=== PATIENT | female | born 1965 | race Native Hawaiian/Other Pacific Islander ===

== ENCOUNTER 2017-12-31 07:55 | Emergency (ER) | payer BC, SELFPAY ==
[2017-12-31 08:01] VITALS: BP 108/70; PULSE 79; RESP 16; TEMP 36.6; O2SAT 100; BMI 22.6
--- NOTE | 2017-12-31 08:22 | ED_ITS ---
HPI - URI/Sore Throat General Chief Complaint: Upper Respiratory Symptoms Stated Complaint: 'COLD OR SOMETHING' Time Seen by Provider: 12/31/17 07:58 Source: patient Mode of arrival: ambulatory Limitations: no limitations History of Present Illness HPI Narrative: Otherwise healthy 52-year-old female here for evaluation of sinus congestion and a dry cough and ear pain without a sore throat for the past 24-48 hours. Patient states that she had similar symptoms 2 weeks ago that improved on their own. No wheezing. Tried some Tylenol last evening. Related Data Previous Rx's Medication Instructions Recorded codeine-guaifenesin [Guaifenesin 10 ml PO Q4-6H PRN #118 ml 12/31/17 AC] Allergies Allergy/AdvReac Type Severity Reaction Status Date / Time Penicillins AdvReac Verified 12/31/17 08:01 Review of Systems Constitutional Denies body ache(s), Denies fever(s), Denies malaise and Denies weakness ENT Ears, Nose, Mouth, and Throat: Denies vertigo, Denies dizziness, Reports dry mouth, Reports sinus pain, Reports sinus pressure, Denies sore throat, Denies throat swelling and Denies tongue swelling Cardiovascular Denies chest pain and Denies dyspnea Respiratory Reports cough, Denies dyspnea and Denies wheezing Gastrointestinal Gastrointestinal: Denies nausea and Denies vomiting Integumentary/Breasts Denies lesions and Denies rash Neurologic Denies vertigo, Denies dizziness and Denies weakness Hematologic/Lymphatic Denies easy bleeding and Denies easy bruising Allergic/Immunologic Denies throat swelling, Denies tongue swelling and Denies wheezing PFSH Social History Smoking Status: Never smoker Exam Initial Vital Signs Initial Vital Signs: Vital Signs Temperature 97.9 F 12/31/17 08:01 Pulse Rate 79 12/31/17 08:01 Respiratory Rate 16 12/31/17 08:01 Blood Pressure 108/70 12/31/17 08:01 Pulse Oximetry 100 12/31/17 08:01 Const General: cooperative and well developed Nutritional Appearance: well nourished Orientation: alert, awake, oriented x3 and not confused HENMT Head: normal to inspection, normocephalic and atraumatic Ears: other (Left TM obscured by cerumen, right TM bulging however no erythema) Nose: external nose normal Face and sinus: normal facial exam Mouth: oral mucosae normal and other (Posterior oropharynx red no signs of exudate) Teeth and gingiva: dentition normal Throat: uvula midline Neck Lymphatic: No lymphadenopathy Resp Effort & Inspection: normal respiratory effort Auscultation: clear to auscultation bilaterally Cardio Rate: regular rate Rhythm: regular rhythm Neuro General: alert, awake and oriented x3 Cognition: normal cognition Speech: speech normal Extrem General: normal to inspection and capillary refill normal Course Vital Signs - 8 hr 12/31/ 08:01 Temperature 97.9 F Pulse Rate 79 Respiratory Rate 16 Blood Pressure 108/70 Pulse Oximetry 100 MDM - URI/Sore Throat MDM Narrative Medical decision making narrative: Patient is not hypoxic, afebrile here, has history of physical exam consistent with upper respiratory infection. Will hold on chest x-ray for now. Will provide symptoms review. We did discuss the use of antihistamine such as Claritin and Judy and also nasal steroid such as Flonase or Nasonex. Patient will by these over the counter. Will also provide Robitussin with codeine for her cough symptoms. She was informed that this may not take her cough completely away but should improve her symptoms. She was given return precautions. She expressed understanding and agreement with plan Discharge Plan Departure Patient Disposition: Home, Self-Care Clinical Impression: Upper respiratory infection Instructions: Cough (Alternative Therapy), Cough, DI for Viral Upper Respiratory Infection -- Adult Activity Restrictions/Additional Instructions: Recommend that you purchase an [id number] antihistamine such as Claritin/ Judy/Zyrtec and also a nasal steroid such as Nasonex/Flonase. You can by the generic version of these medicines. They can be purchased at any drug store. I would take these medications as directed for the next several days and then as needed afterwards. Call your primary care doctor for a follow-up. Return to the emergency department for any new or worsening symptoms Prescriptions: New codeine-guaifenesin [Guaifenesin AC] 10-100 mg/5 mL liquid 10 ml PO Q4-6H PRN (Reason: cough) Qty: 118 RF: 0
[2017-12-31 08:28] VITALS: BP 108/70; PULSE 79; RESP 18; O2SAT 100
== END 2017-12-31 08:28 | disposition home or self-care (01) ==
PROVIDERS: Emergency Provider Emergency Medicine
DX: J06.9 Acute upper respiratory infection, unspecified (principal)
CPT/HCPCS: 99282

== ENCOUNTER → 2018-05-26 19:02 | Outpatient (CLI) | payer BC, SELFPAY ==
--- NOTE | 2018-05-26 | DI.MRI.S_ITS ---
PROCEDURE: MR SHOULDER LT WO CON INDICATIONS: LEFT SHOULDER PAIN TECHNIQUE: Noncontrast oblique coronal T2 fast spin echo with fat saturation, oblique sagittal T1 spin echo and T2 fast spin echo with fat saturation, axial T1 spin echo and T2 fast spin echo with fat saturation through the shoulder. COMPARISON: None. FINDINGS: Image quality: Excellent. Rotator cuff: Full-thickness tear of the supraspinatus tendon measuring approximately 7-8 mm in AP dimension as seen on sagittal image 17 series 10. There is infraspinatus tendinopathy, with interstitial tearing and partial thickness articular sided tear. The teres minor appears intact. Marked subscapularis tendinopathy, interstitial tearing and partial thickness articular sided tear approximately 50% of tendon thickness. There is fatty infiltration of the supraspinatus and infraspinatus muscles with borderline atrophy of the supraspinatus. Bones and bursae: No bone marrow contusions or fractures. Moderate acromioclavicular joint degeneration. Incidentally noted lateral downsloping of the acromion. The acromion demonstrates conventional anatomy, without an os acromiale. Capsule and soft tissues: Moderate glenohumeral joint effusion. The labrum and glenohumeral ligaments appear intact. Circumferential glenoid spurring. Incidental sub-labral foramen The long head of the biceps tendon demonstrates normal location and morphology. The rotator interval appears normal, without fibrosis. The coracohumeral ligament is normal in thickness. IMPRESSION: Full-thickness supraspinatus tear at the junction of the critical zone and footprint. Infraspinatus tendinopathy with partial-thickness articular sided tear. Subscapularis tendinopathy and partial-thickness articular sided tear. Portal and atrophy of the supraspinatus, and diffuse fatty filtration of the supraspinatus and infraspinatus. Lateral downsloping of the acromion. Moderate glenohumeral joint effusion. Dictated by: Solitario Erickson M.D. on 05/27/2018 at 9:52 Approved by: Solitario Erickson M.D. on 05/27/2018 at 10:02
== END ==
PROVIDERS: Visit Provider Specialist
DX: M25.512 Pain in left shoulder (principal); M75.122 Complete rotator cuff tear or rupture of left shoulder, not specified as traumatic; M25.412 Effusion, left shoulder
CPT/HCPCS: 73221

== ENCOUNTER 2019-03-15 17:02 | Emergency (ER) | payer BC, SELFPAY ==
[2019-03-15 17:17] VITALS: BP 119/78; PULSE 82; RESP 20; TEMP 36.4; O2SAT 99
--- NOTE | 2019-03-15 17:48 | DI.RAD.S_ITS ---
PROCEDURE: XR CHEST 1V INDICATIONS: chest pain TECHNIQUE: One view of the chest was acquired. COMPARISON: None. FINDINGS: Surgical changes and devices: None. Lungs and pleura: Lungs are clear. No pleural effusions or pneumothorax. Mediastinum: Mediastinal contours appear normal. Heart size is normal. Bones and chest wall: No suspicious bony lesions. Mild thoracic scoliosis. Overlying soft tissues appear unremarkable. IMPRESSION: No acute cardiopulmonary disease. Dictated by: Neena Naik M.D. on 03/15/2019 at 18:26 Approved by: Neena Naik M.D. on 03/15/2019 at 18:27
--- NOTE | 2019-03-15 17:48 | CM.MNRNOTE ---
Pt refuses IV start at this time.
[2019-03-15 18:15] LABS: Add Manual Diff / Slide Review NO; Basophils Absolute Auto 100 /uL (0-100); Basophils Percent Auto 2.4 % (0-2); Eosinophils Absolute Auto 0 /uL (0-450); Eosinophils Percent Auto 0.6 % (2-4); Hematocrit 35.9 % (36-46); Lymphocytes Absolute Auto 1400 /uL (1100-4500); Lymphocytes Percent Auto 36.2 % (25-40); Mean Corpuscular HGB Conc 33.4 % (30-36); Mean Corpuscular Hemoglobin 28.2 PG (26-34); Mean Corpuscular Volume 84.5 fL (80-100); Monocytes Absolute Auto 200 /uL (0-900); Monocytes Percent Auto 4.3 % (3-14); Neutrophils Absolute Auto 2200 /uL (1500-7000); Neutrophils Percent Auto 56.5 % (50-75); Platelet Count 215 X10^3/uL (150-400); Red Blood Cell Count 4.25 X10^6/uL (4.0-5.2); Red Cell Distribution Width 13.7 % (11.6-14.8); White Blood Cell Count 3.9 X10^3/uL (4.5-11.0)
[2019-03-15 18:20] LABS: Prothrombin Time 11.8 SECONDS (10.1-12.7)
[2019-03-15 18:23] LABS: Alanine Aminotransferase 21 IU/L (9-52); Albumin 4.2 g/dL (3.5-5.0); Albumin Globulin Ratio 1.3 (1.0-2.8); Alkaline Phosphatase 66 U/L (38-126); Aspartate Aminotransferase 38 IU/L (14-36); BUN Creatinine Ratio 31.4 (6-22); Bilirubin Total 0.5 mg/dL (0.2-1.3); Blood Urea Nitrogen 22 mg/dL (7-17); Calcium 9.3 mg/dL (8.4-10.2); Carbon Dioxide 29 mmol/L (22-32); Chloride 103 mmol/L (98-107); Creatine Kinase 223 U/L (30-135); Estimated Glomerular Filt Rate > 60.0 mL/min (>60); Globulin 3.2 g/dL (1.7-4.1); Glucose 88 mg/dL (70-100); HEMOLYSIS < 15 (0-50); Lipase 74 U/L (23-300); PTT Partial Thromboplastin Tim 39 SECONDS (26.4-36.2); Potassium 3.5 mmol/L (3.4-5.1); Sodium 139 mmol/L (137-145); Total Protein 7.4 g/dL (6.3-8.2)
[2019-03-15 18:34] LABS: Troponin I < 0.012 ng/mL (0.01-0.034)
--- NOTE | 2019-03-15 18:43 | DI.CT.S_ITS ---
PROCEDURE: CT HEAD/BRAIN WO CON INDICATIONS: dizziness, ELAINE TECHNIQUE: Noncontrast 4.5 mm thick angled axial sections acquired from the foramen magnum to the vertex, with coronal and sagittal reformats. For radiation dose reduction, the following was used: automated exposure control, adjustment of mA and/or kV according to patient size. COMPARISON: None. FINDINGS: Image quality: Excellent. CSF spaces: Basal cisterns are patent. No extra-axial fluid collections. Ventricles are normal in size and shape. Brain: No midline shift. No intracranial masses or hemorrhage. Terrazas-white matter interface is normal. Skull and face: Calvarium and visualized facial bones are intact, without suspicious lesions. Sinuses: Visualized sinuses and mastoids are clear. IMPRESSION: No CT evidence of acute intracranial process. Dictated by: Neena Naik M.D. on 03/15/2019 at 20:14 Approved by: Neena Naik M.D. on 03/15/2019 at 20:16
[2019-03-15 18:45] VITALS: BP 107/82; PULSE 66; RESP 18; O2SAT 100
[2019-03-15 19:00] VITALS: BP 105/68; PULSE 66; RESP 11; O2SAT 99
--- NOTE | 2019-03-15 19:01 | ED_ITS ---
HPI - Dizziness General Chief Complaint: Dizziness Stated Complaint: Vomitting and Dizzy for 2 days Time Seen by Provider: 03/15/19 18:03 Source: patient and family Mode of arrival: ambulatory Limitations: no limitations History of Present Illness HPI Narrative: 53-year-old female nonsmoker with noncontributory medical history presents with her in the chief complaint dizziness for the past few days as well as nausea and vomiting. She states the dizziness started prior to the nausea and vomiting. She states her symptoms are worse with sitting up, standing or turning her head and improve 1 remaining still. She has a subtle, pressure-like headache. She denies any recent head injury, fever, chills nor history of the same. She denies any focal neurologic findings such as numbness, tingling or weakness. She denies any upper respiratory complaints such as runny nose, nasal congestion, sneezing, cough, sore throat or ear pain. She denies any change in medications or diet. MD complaint: dizziness Onset (ago): day(s) Timing: sudden onset Description: sense of movement and room spinning History of similar episodes: No History of trauma: No Severity: moderate Relieving factors: remaining still Exacerbating factors: movement and position Associated symptoms: nausea and vomiting Related Data Home Medications Medication Instructions Recorded Confirmed Chantal-C with Bioflavonoids 1 tab PO DAILY 03/15/19 03/15/19 Fish Oil 1 cap PO DAILY 03/15/19 03/15/19 Vitamin D3 1 cap PO DAILY 03/15/19 03/15/19 aspirin 81 mg PO DAILY 03/15/19 03/15/19 cranberry 1 cap PO DAILY 03/15/19 03/15/19 vitamin E 1 cap PO DAILY 03/15/19 03/15/19 Previous Rx's Medication Instructions Recorded meclizine 25 mg PO BID-TID PRN #14 tab 03/15/19 ondansetron 4 mg PO TID-QID PRN #10 tab 03/15/19 Allergies Allergy/AdvReac Type Severity Reaction Status Date / Time Penicillins AdvReac Verified 12/31/17 08:01 Review of Systems Constitutional Constitutional: Denies chills, Denies fatigue, Denies fever(s), Denies frequent falls, Denies lethargy and Denies weakness Eyes Eyes: Denies change in vision, Denies eye discharge, Denies irritation and Denies loss of vision ENT Ears, Nose, Mouth, and Throat: Denies change in voice, Reports dizziness, Denies neck pain, Denies sore throat and Denies throat swelling Cardiovascular Cardiovascular: Denies chest pain, Denies irregular heart rhythm, Denies lightheadedness, Denies palpitations, Denies dyspnea, Denies dyspnea on exertion and Denies orthopnea Respiratory Respiratory: Denies cough, Denies dyspnea, Denies dyspnea on exertion and Denies wheezing Gastrointestinal Gastrointestinal: Denies abdominal pain, Denies change in bowel habits, Denies diarrhea, Reports nausea and Reports vomiting Genitourinary Genitourinary: Denies hematuria, Denies flank pain, Denies urinary incontinence and Denies urinary urgency Musculoskeletal Musculoskeletal: Denies back pain, Denies muscle weakness, Denies neck pain, Denies numbness and Denies tingling Integumentary/Breasts Skin/Breast: Denies pruritus, Denies erythema, Denies rash and Denies wounds Neurologic Neurologic: Denies behavioral changes, Denies confusion, Reports dizziness, Denies frequent falls, Denies loss of vision, Denies numbness, Denies tingling and Denies weakness Psychiatric Psychiatric: Denies anxiety, Denies behavioral changes, Denies confusion, Denies depression, Denies homicidal ideation and Denies suicidal ideation Endocrine Endocrine: Denies fatigue, Denies flushing and Denies palpitations Hematologic/Lymphatic Hematologic/Lymphatic: Denies easy bruising Allergic/Immunologic Allergic/Immunologic: Denies urticaria, Denies throat swelling and Denies wheezing [facility] Medical History Milia (Chronic ~1999) Plantar warts (Chronic ~1999) Shoulder pain (Chronic ~2017) Torn rotator cuff (Chronic ~04/2018) Vision disorder (Chronic) Surgical History Anesthesia (Resolved) History of abdominoplasty (Resolved ~2014) History of breast augmentation (Resolved ~2014) History of section (Resolved ~1998) Family History (Updated 03/06/19 @ 20:59 by Kathy Pardo) Father Alzheimer's disease Mother Cancer Social History Smoking Status: Never smoker Family History Father Alzheimer's disease Mother Cancer Social History Smoking Status: Never smoker Exam Narrative Exam Narrative: GENERAL: [53] year old patient appears stated age. Well- nourished, well-developed patient, in mild distress. HEAD: Atraumatic. Normocephalic. EYES: Pupils equal round and reactive. Extraocular motions intact. No scleral icterus. No injection or drainage. ENT: Nose without bleeding, purulent drainage. Throat without erythema, tonsillar hypertrophy or exudate. Airway patent. NECK: Trachea midline. Non tender CARDIOVASCULAR: Regular rate and rhythm without murmurs, gallops, or rubs. RESPIRATORY: Clear to auscultation. Breath sounds equal bilaterally. No wheezes, rales, or rhonchi. GASTROINTESTINAL: Abdomen soft, non-tender, nondistended. EXTREMITIES: No edema or joint tenderness. BACK: Nontender without deformity or crepitance. No flank tenderness. NEURO: AOx3. SKIN: No rash or erythema of visible areas NIH Stroke Scale 1a. LOC: Patient is alert and keenly responsive (0) 1b. LOC Questions: Patient answers both LOC questions accurately (0) 1c. LOC Commands: Patient performs both tasks correctly (0) 2. Best Gaze: Normal (0) 3. Visual: No visual loss (0) 4. Facial palsy: Normal symmetrical movements (0) 5. Motor arm: No drift (0) 6. Motor leg: No drift (0) 7. Limb ataxia: Absent (0) 8. Sensory: Normal (0) 9. Best language: No aphasia; normal (0) 10. Dysarthria: Normal (0) 11. Extinction and inattention: No abnormality (0) NIHSS: 0 Initial Vital Signs Initial Vital Signs: Vital Signs Temperature 97.5 F L 03/15/19 17:17 Pulse Rate 82 03/15/19 17:17 Respiratory Rate 20 03/15/19 17:17 Blood Pressure 119/78 03/15/19 17:17 Pulse Oximetry 99 03/15/19 17:17 Course Course Course Narrative: bedside rapid CO monitor notes a level of 4 Orders Ordered: ED Orders 03/15/19 18:43 CT head/brain wo con Stat Discontinued Medications Meclizine HCl (Antivert) 25 mg PO NOW ONE Stop: 03/15/19 18:44 Last Admin: 03/15/19 19:02 Dose: 25 mg Documented by: SHOAIB Vital Signs Vital signs: Vital Signs - 8 hr 03/15/19 20:22 03/15/19 21:20 Pulse Rate 69 Pulse Rate [Orthostatic Lying] 62 Pulse Rate [Orthostatic Sitting] 67 Pulse Rate [Orthostatic Standing] 79 Respiratory Rate 17 Blood Pressure 123/85 Blood Pressure [Orthostatic Lying] 113/65 Blood Pressure [Orthostatic Sitting] 135/71 Blood Pressure [Orthostatic Standing] 121/78 Pulse Oximetry 100 MDM - Dizziness Lab Data Result diagrams: 03/15/19 17:56 03/15/19 17:56 Labs: Lab Results 03/15/19 03/15/19 03/15/19 Range/Units 17:56 17:56 17:56 WBC 3.9 L (4.5-11.0) X10^3/uL RBC 4.25 (4.0-5.2) X10^6/uL Hgb 12.0 (12.0-16.0) g/dL Hct 35.9 L (36-46) % MCV 84.5 (80-100) fL MCH 28.2 (26-34) PG MCHC 33.4 (30-36) % RDW 13.7 (11.6-14.8) % Plt Count 215 (150-400) X10^3/uL Neut % (Auto) 56.5 (50-75) % Lymph % (Auto) 36.2 (25-40) % Norton % (Auto) 4.3 (3-14) % Eos % (Auto) 0.6 L (2-4) % Baso % (Auto) 2.4 H (0-2) % Neut # (Auto) 2200 (2881-9448) /uL Lymph # (Auto) 1400 (5700-6233) /uL Norton # (Auto) 200 (0-900) /uL Eos # (Auto) 0 (0-450) /uL Baso # (Auto) 100 (0-100) /uL PT 11.8 (10.1-12.7) SECONDS INR 1.0 (0.9-1.3) APTT 39 H (26.4-36.2) SECONDS Sodium 139 (137-145) mmol/L Potassium 3.5 (3.4-5.1) mmol/L Chloride 103 (98-107) mmol/L Carbon Dioxide 29 (22-32) mmol/L BUN 22 H (7-17) mg/dL Creatinine 0.70 (0.52-1.04) mg/dL Estimated GFR > 60.0 (>60) mL/min BUN/Creatinine Ratio 31.4 H (6-22) Glucose 88 (70-100) mg/dL Calcium 9.3 (8.4-10.2) mg/dL Total Bilirubin 0.5 (0.2-1.3) mg/dL AST 38 H (14-36) IU/L ALT 21 (9-52) IU/L Alkaline Phosphatase 66 (38-126) U/L Total Creatine Kinase 223 H (30-135) U/L CK-MB (CK-2) 2.30 (<2.37) ng/mL CK-MB (CK-2) Rel Index 1.0 L (1.5-5.0) % Troponin I < 0.012 (0.01-0.034) ng/mL Total Protein 7.4 (6.3-8.2) g/dL Albumin 4.2 (3.5-5.0) g/dL Globulin 3.2 (1.7-4.1) g/dL Albumin/Globulin Ratio 1.3 (1.0-2.8) Lipase 74 (23-300) U/L Urine Dip Bedside Urine Glucose Negative Bedside Urine Bilirubin - Negative Bedside Urine Ketone - Negative Urine Specific [place] 1.010 Bedside Urine Occult Blood - Negative Bedside Urine pH 6.5 Bedside Urine Protein - Negative Bedside Urine Urobilinogen - Negative Bedside Urine Nitrite - Negative Bedside Urine Leukocytes - Negative Esterase MDM Narrative Medical decision making narrative: Multiple etiologies for patient's symptoms considered including: [Stroke versus dehydration versus peripheral vertigo versus electrolyte abnormality versus carbon monoxide exposure versus other] Patient's symptoms improved or duration of stay with above-stated therapies. Findings and discharge diagnosis discussed with patient/family followed by verbalization of understanding Return precautions discussed with patient/family whom verbalize understanding. Discharge Plan Departure Patient Disposition: Home Clinical Impression: Dizziness Discharge Date/Time: 03/15/19 21:20 Instructions: DI for Dizziness-Nonvertigo Activity Restrictions/Additional Instructions: *You have been diagnosed with [ dizziness. Stroke, heart attack, carbon monoxide considered ] *What to do: *Take medications as directed *Follow up with your primary care provider in 2-3 days, call for an ap pointment. Let them know you were seen in the Emergency Department and that we ask that you be seen in follow up *Return to ER if you should have any new, worsening or concerning symptoms Prescriptions: New meclizine 25 mg tablet 25 mg PO BID-TID PRN (Reason: dizziness) Qty: 14 RF: 0 ondansetron 4 mg tablet,disintegrating 4 mg PO TID-QID PRN (Reason: nausea and vomiting) Qty: 10 RF: 0 No Action aspirin 81 mg Tablet,Delayed Release (Dr/Ec) 81 mg PO DAILY RF: 0 Chantal-C with Bioflavonoids 1 tab PO DAILY RF: 0 Fish Oil 1 cap PO DAILY RF: 0 Vitamin D3 1 cap PO DAILY RF: 0 cranberry 1 cap PO DAILY RF: 0 vitamin E 1 cap PO DAILY RF: 0 Referrals: Angela Stack DO [Physician] -
[2019-03-15] MEDS: MECLIZINE HCL 12.5 MG TABLET 25 MG PO (19:02)
[2019-03-15 20:22] VITALS: BP 113/65; BP 121/78; BP 135/71; PULSE 62; PULSE 67; PULSE 79
[2019-03-15 21:20] VITALS: BP 123/85; PULSE 69; RESP 17; O2SAT 100
== END 2019-03-15 21:20 | disposition home or self-care (01) ==
PROVIDERS: Emergency Medicine; Emergency Provider Emergency Medicine
DX: R42 Dizziness and giddiness (principal); R07.9 Chest pain, unspecified
CPT/HCPCS: 36415; 70450; 71045; 80053; 81003; 82550; 82553; 83690; 84484; 85025; 85610; 85730; 93005; 99283; 99285

== ENCOUNTER → 2019-07-10 12:51 | Outpatient (CLI) | payer BC, SELFPAY ==
[2019-07-10 14:12] LABS: Cholesterol 267 mg/dL (140-199); Triglycerides 92 mg/dL (35-150)
[2019-07-10 14:27] LABS: HDL Cholesterol 122 mg/dL (40-60); LDL Cholesterol Calculated 127 mg/dL (<100)
[2019-07-10 14:39] LABS: Thyroid Stimulating Hormone 1.72 uIU/mL (0.47-4.68)
== END ==
PROVIDERS: PCP Family Medicine; Visit Provider Family Medicine
DX: R42 Dizziness and giddiness (principal); Z13.29 Encounter for screening for other suspected endocrine disorder; Z13.220 Encounter for screening for lipoid disorders
CPT/HCPCS: 36415; 80061; 84443

== ENCOUNTER → 2020-01-17 16:27 | Outpatient (CLI) | payer BC, SELFPAY ==
[2020-01-17 17:21] LABS: Add Manual Diff / Slide Review NO; Basophils Absolute Auto 100 /uL (0-100); Basophils Percent Auto 3.6 % (0-2); Eosinophils Absolute Auto 100 /uL (0-450); Eosinophils Percent Auto 2.9 % (2-4); Hematocrit 37.8 % (36-46); Hemoglobin 12.6 g/dL (12.0-16.0); Lymphocytes Absolute Auto 1500 /uL (1100-4500); Lymphocytes Percent Auto 36.7 % (25-40); Mean Corpuscular HGB Conc 33.3 % (30-36); Mean Corpuscular Hemoglobin 28.3 PG (26-34); Mean Corpuscular Volume 84.9 fL (80-100); Monocytes Absolute Auto 200 /uL (0-900); Monocytes Percent Auto 4.5 % (3-14); Neutrophils Absolute Auto 2100 /uL (1500-7000); Neutrophils Percent Auto 52.3 % (50-75); Platelet Count 246 X10^3/uL (150-400); Red Blood Cell Count 4.45 X10^6/uL (4.0-5.2); Red Cell Distribution Width 13.5 % (11.6-14.8); White Blood Cell Count 4.1 X10^3/uL (4.5-11.0)
[2020-01-17 18:23] LABS: Prothrombin Time 11.2 SECONDS (10.1-12.7)
[2020-01-17 18:28] LABS: Alanine Aminotransferase 23 IU/L (<35); Albumin 4.2 g/dL (3.5-5.0); Albumin Globulin Ratio 1.5 (1.0-2.8); Alkaline Phosphatase 74 U/L (38-126); Aspartate Aminotransferase 38 IU/L (14-36); BUN Creatinine Ratio 27.8 (6-22); Bilirubin Total 0.3 mg/dL (0.2-1.3); Blood Urea Nitrogen 20 mg/dL (7-17); Calcium 9.6 mg/dL (8.4-10.2); Carbon Dioxide 28 mmol/L (22-32); Chloride 103 mmol/L (98-107); Estimated Glomerular Filt Rate > 60.0 mL/min (>60); Globulin 2.8 g/dL (1.7-4.1); Glucose 91 mg/dL (70-100); HEMOLYSIS < 15 (0-50); Potassium 4.4 mmol/L (3.4-5.1); Sodium 135 mmol/L (137-145)
== END ==
PROVIDERS: PCP Nurse Practitioner; Referring Provider Nurse Practitioner; Visit Provider Nurse Practitioner
DX: R23.8 Other skin changes (principal)
CPT/HCPCS: 36415; 80053; 85025; 85610

== ENCOUNTER → 2020-07-22 09:03 | Outpatient (CLI) | payer BC, SELFPAY ==
[2020-07-22 10:09] LABS: Alanine Aminotransferase 20 IU/L (<35); Albumin 3.9 g/dL (3.5-5.0); Albumin Globulin Ratio 1.3 (1.0-2.8); Alkaline Phosphatase 62 U/L (38-126); Aspartate Aminotransferase 31 IU/L (14-36); BUN Creatinine Ratio 30.3 (6-22); Bilirubin Total 0.4 mg/dL (0.2-1.3); Blood Urea Nitrogen 23 mg/dL (7-17); Calcium 9.1 mg/dL (8.4-10.2); Carbon Dioxide 33 mmol/L (22-32); Chloride 104 mmol/L (98-107); Cholesterol 224 mg/dL (140-199); Estimated Glomerular Filt Rate > 60.0 mL/min (>60); Globulin 3.1 g/dL (1.7-4.1); Glucose 101 mg/dL (70-100); HEMOLYSIS < 15 (0-50); Magnesium 2.1 mg/dL (1.6-2.3); Potassium 4.3 mmol/L (3.4-5.1); Sodium 136 mmol/L (137-145); Triglycerides 75 mg/dL (35-150)
[2020-07-22 10:18] LABS: HDL Cholesterol 115 mg/dL (40-60); LDL Cholesterol Calculated 94 mg/dL (<100)
[2020-07-22 10:32] LABS: Free T3, Triiodothyronine Free 4.62 pg/mL (2.77-5.27); Free T4, Direct Thyroxine 0.98 ng/dL (0.78-2.19)
[2020-07-22 10:46] LABS: Thyroid Stimulating Hormone 1.45 uIU/mL (0.47-4.68)
== END ==
PROVIDERS: PCP Nurse Practitioner; Referring Provider Nurse Practitioner; Visit Provider Nurse Practitioner
DX: Z00.00 Encounter for general adult medical examination without abnormal findings (principal); R25.2 Cramp and spasm
CPT/HCPCS: 36415; 80053; 80061; 83735; 84439; 84443; 84481

== ENCOUNTER → 2021-02-03 08:21 | Outpatient (ROUT) | payer BC, SELFPAY ==
[2021-02-04 15:56] LABS: Fecal Immunochemical Test Negative (Negative)
== END ==
PROVIDERS: PCP Nurse Practitioner; Visit Provider Nurse Practitioner
DX: Z12.11 Encounter for screening for malignant neoplasm of colon (principal)
CPT/HCPCS: 82274

== ENCOUNTER → 2021-05-15 16:44 | Outpatient (CLI) | payer BC, SELFPAY ==
[2021-05-15 17:44] LABS: Alanine Aminotransferase 28 IU/L (<35); Albumin 4.5 g/dL (3.5-5.0); Albumin Globulin Ratio 1.4 (1.0-2.8); Alkaline Phosphatase 61 U/L (38-126); Aspartate Aminotransferase 43 IU/L (14-36); BUN Creatinine Ratio 29.3 (6-22); Bilirubin Total 0.4 mg/dL (0.2-1.3); Blood Urea Nitrogen 24 mg/dL (7-17); Calcium 9.4 mg/dL (8.4-10.2); Carbon Dioxide 31 mmol/L (22-32); Chloride 103 mmol/L (98-107); Estimated Glomerular Filt Rate > 60.0 mL/min (>60); Globulin 3.3 g/dL (1.7-4.1); Glucose 89 mg/dL (70-100); HEMOLYSIS < 15 (0-50); Potassium 3.8 mmol/L (3.4-5.1); Sodium 139 mmol/L (137-145); Total Protein 7.8 g/dL (6.3-8.2)
== END ==
PROVIDERS: PCP Nurse Practitioner; Referring Provider Nurse Practitioner; Visit Provider Nurse Practitioner
DX: B35.1 Tinea unguium (principal); Z79.899 Other long term (current) drug therapy
CPT/HCPCS: 36415; 80053

== ENCOUNTER 2021-06-28 19:44 | Emergency (ER) | payer OTHER, SELFPAY ==
[2021-06-28 19:50] VITALS: BP 126/74; PULSE 85; RESP 18; TEMP 36.8; O2SAT 98; BMI 20.1
--- NOTE | 2021-06-28 20:06 | DI.RAD.S_ITS ---
PROCEDURE: XR SHOULDER RT MIN 2V INDICATIONS: Fall with bilateral shoulder pain TECHNIQUE: 3 views of the shoulder were acquired. COMPARISON: None. FINDINGS: Bones: No fractures or dislocations. No suspicious bony lesions. Visualized ribs appear intact. Soft tissues: No suspicious soft tissue calcifications. IMPRESSION: No fracture. No osseous lesion. If symptoms and/or clinical suspicion for pathology persists, further assessment with repeat radiographs (7-10 days) or advanced imaging (e.g. CT, MRI or bone scan) should be considered. Dictated by: Shira Mercedes MD, PhD on 06/28/2021 at 20:40 Approved by: Shira Mercedes MD, PhD on 06/28/2021 at 20:40
--- NOTE | 2021-06-28 20:06 | DI.RAD.S_ITS ---
PROCEDURE: XR SHOULDER LT MIN 2V INDICATIONS: Fall with bilateral shoulder pain TECHNIQUE: 3 views of the shoulder were acquired. COMPARISON: None. FINDINGS: Bones: No fractures or dislocations. No suspicious bony lesions. Visualized ribs appear intact. Soft tissues: No suspicious soft tissue calcifications. IMPRESSION: No fracture. No osseous lesion. If symptoms and/or clinical suspicion for pathology persists, further assessment with repeat radiographs (7-10 days) or advanced imaging (e.g. CT, MRI or bone scan) should be considered. Dictated by: Shira Mercedes MD, PhD on 06/28/2021 at 20:39 Approved by: Shira Mercedes MD, PhD on 06/28/2021 at 20:39
--- NOTE | 2021-06-28 20:38 | ED.UPPEXIN ---
HPI - Extremity Injury (Upper) General Chief Complaint: Extremity Injury, Upper Stated Complaint: BI SHOULDER PAIN/INJURY POST FALL Time Seen by Provider: 06/28/21 20:38 Source: patient Mode of arrival: Ambulatory Limitations: no limitations History of Present Illness HPI narrative: This is a 55-year-old female who works for the [employer]. 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 Patient was able to catch herself but santiago both shoulders immediately had pain bilaterally. She has some range of motion but has significantly increased pain with flexion at the shoulders and 80 duction. Patient states it feels weak like she needs to assist her arm to lift it overhead although it is quite painful to try to bring her arm overhead. Patient denies any other injuries. She denies any numbness, tingling or weakness. She states the pain feels sort of in the AC joint region. Patient denies any other medical issues. She has had some pain in her right shoulder in the past and had an injury and was told that there was tear in her shoulder after MRI but improved after about 3 weeks and she never required any intervention. She denies any surgeries otherwise. No allergies to medications other than penicillin. She take 2 tablets of Tylenol today which was helpful for her pain. Vianney byrne is her primary care. Related Data Home Medications Medication Instructions Recorded Confirmed Fish Oil 1 cap PO DAILY 01/03/21 05/29/21 multivitamin (Multiple Vitamins) 1 tab PO DAILY 01/03/21 05/29/21 Previous Rx's Medication Instructions Recorded Estriol 1mg Vaginal Silvia See Rx Instructions .ROUTE 01/29/21 .COMPLEX #45 ea terbinafine HCl 250 mg tablet 250 mg PO DAILY #90 tab 05/29/21 Allergies Allergy/AdvReac Type Severity Reaction Status Date / Time Penicillins AdvReac Verified 01/29/21 10:27 Review of Systems Review of Systems ROS Unobtainable: All systems reviewed & are unremarkable except as noted in HPI and below Patient History Medical History Abnormal bruising Bladder prolapse, female, acquired Constipation Hyperlipidemia Left shoulder pain Milia (~1999) Plantar warts (~1999) Right shoulder pain Right shoulder pain Shoulder pain (~2017) Torn rotator cuff (~04/2018) Vision disorder Surgical History Anesthesia History of abdominoplasty (~2014) History of breast augmentation (~2014) History of section (~1998) Family History Father Alzheimer's disease Mother Cancer Hypertension Family/Other Autism Social History Smoking Status: Never smoker Smoking Status: Never smoker Substance Use Type: does not use Exam Narrative Exam Narrative: GENERAL: Alert and oriented x three, female in mild distress. HEENT: Head normocephalic, atraumatic, EOMI, pupils reactive, face symmetric, moist mucous membranes NECK: Supple, full range of motion CARDIOVASCULAR: Regular rate and rhythm without murmurs, rubs or gallops. RESPIRATORY: Breath sounds equal bilaterally, no wheezes rales or rhonchi. ABDOMEN: Soft, nontender. Normoactive bowel sounds all 4 quadrants. No guarding or rebound, rigidity, no mass : No CVA tenderness EXTREMITIES: Decreased range of motion at bilateral shoulders. Patient has tenderness over the AC bilaterally. Passively I am able to bring her up into flexion extension internal external rotation but patient is significantly more painful with her arm coming beyond 90?. No clubbing or edema. Neurovascularly intact. 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 She has nontender otherwise been both upper extremities as well as clavicles. No obvious deformity or changes otherwise. NEUROLOGICAL: Cranial nerves II through XII grossly intact. Moving all extremities SKIN: Warm, dry, no petechiae, no rashes or lesions. Initial Vital Signs Initial Vital Signs: Vital Signs Temperature 98.3 F 06/28/21 19:50 Pulse Rate 85 06/28/21 19:50 Respiratory Rate 18 06/28/21 19:50 Blood Pressure 126/74 06/28/21 19:50 Pulse Oximetry 98 06/28/21 19:50 Course Orders Ordered: Discontinued Medications Acetaminophen (Acetaminophen 325 Mg Tablet) 650 mg PO NOW ONE Stop: 06/28/21 21:00 Last Admin: 06/28/21 21:03 Dose: 650 mg Documented by: ATAYLOR Vital Signs Vital signs: Vital Signs - 8 hr 06/28/21 19:50 Temperature 98.3 F Pulse Rate 85 Respiratory Rate 18 Blood Pressure 126/74 Pulse Oximetry 98 MDM - Extremity Injury (Upper) Imaging Data Extremity x-ray #1: Radiologist's Impression: Close Shoulder X-Ray (Signed) DarenShira - 06/28/21 Shoulder X-Ray (Signed) Shira Mercedes - 06/28/21 Mammogram Result 08/05/20 DI Result 08/05/20 DI Result CC 08/03/[address] (Signed) Neena Naik - 03/15/19 Chest X-Ray (Signed) Neena Naik - 03/15/19 Shoulder MRI (Addendum) Solitario Erickson - 05/26/18 Launch?[address] [address] XRay Report Signed Patient: Maggy De León MR#: [id number] : 1965 Acct:[id number] Age/Sex: 55 / F Date of Service: 06/28/21 Loc: ED Accession Number: [id number] ?? Procedure: XR shoulder RT min 2V Ordering Provider: Alexa Aquino D.O. PROCEDURE:? XR SHOULDER RT MIN 2V ? INDICATIONS:? Fall with bilateral shoulder pain ? TECHNIQUE:? 3 views of the shoulder were acquired.? ? COMPARISON:? None. ? FINDINGS:? ? Bones:? No fractures or dislocations.? No suspicious bony lesions.? Visualized ribs appear intact.? ? Soft tissues:? No suspicious soft tissue calcifications.? ? IMPRESSION:? No fracture. No osseous lesion. If symptoms and/or clinical suspicion for pathology persists, further assessment with repeat radiographs (7-10 days) or advanced imaging (e.g. CT, MRI or bone scan) should be considered. ? ? Dictated by: Shira Mercedes MD, PhD on 06/28/2021 at 20:40 ? ? Approved by: Shira Mercedes MD, PhD on 06/28/2021 at 20:40?? Extremity x-ray #2: Radiologist's Impression: Launch?[address] [address] XRay Report Signed Patient: Maggy De León MR#: [id number] : 1965 Acct:[id number] Age/Sex: 55 / F Date of Service: 06/28/21 Loc: ED Accession Number: [id number] ?? Procedure: XR shoulder LT min 2V Ordering Provider: Alexa Aquino D.O. PROCEDURE:? XR SHOULDER LT MIN 2V ? INDICATIONS:? Fall with bilateral shoulder pain ? TECHNIQUE:? 3 views of the shoulder were acquired.? ? COMPARISON:? None. ? FINDINGS:? ? Bones:? No fractures or dislocations.? No suspicious bony lesions.? Visualized ribs appear intact.? ? Soft tissues:? No suspicious soft tissue calcifications.? ? IMPRESSION:? No fracture. No osseous lesion. If symptoms and/or clinical suspicion for pathology persists, further assessment with repeat radiographs (7-10 days) or advanced imaging (e.g. CT, MRI or bone scan) should be considered. ? ? Dictated by: Shira Mercedes MD, PhD on 06/28/2021 at 20:39 ? ? Approved by: Shira Mercedes MD, PhD on 06/28/2021 at 20:39?? MDM Narrative Medical decision making narrative: Is a 55-year-old female comes to the emergency department with complaint of bilateral shoulder pain after a slip and fall and a jarring impact to both shoulders. Patient states that she feels weak needs to assist her arms to lift it overhead. She has pain in bilateral shoulders with movement at the joint. X-rays are negative for acute fracture or dislocation. She has otherwise reassuring exam. Plan for follow-up with Orthopedic surgery. Discharge Plan Departure Patient Disposition: Home Clinical Impression: Injury of both shoulders Instructions: Shoulder Sprain Activity Restrictions/Additional Instructions: Follow-up with orthopedic surgery. Call for an appointment on Wednesday. Your imaging today is does not show any breaks to the bone or dislocation. You may have injured or re-injured your shoulders at the tendons or ligaments or cartilage. You may take Tylenol up to a 1000 mg every 8 hours and/or ibuprofen up to 600 mg every 6 hours. You may use ice or heat to the affected areas once hourly. You may slowly increase your range of motion in your shoulders as tolerated. Please return for rapidly worsening symptoms, new numbness, tingling or weakness, loss of sensation or other new or concerning symptoms. Prescriptions: No Action Fish Oil 1 cap PO DAILY 0RF multivitamin [Multiple Vitamins] Tablet 1 tab PO DAILY 0RF Estriol 1mg Vaginal Silvia See Rx Instructions .ROUTE .COMPLEX Qty: 45 3RF Rx Instructions: Insert one silvia vaginally at bedtime every other night terbinafine HCl 250 mg tablet 250 mg PO DAILY Qty: 90 1RF Rx Instructions: Take 1 tab daily for toenail fungus Referrals: Vianney Byrne ARNP [Primary Care Provider] - Jayy Cleveland MD [Physician] - Stand Alone Forms: Work Release Note
[2021-06-28] MEDS: ACETAMINOPHEN 325 MG TABLET 650 MG PO (21:03)
[2021-06-28 21:17] VITALS: BP 122/66; PULSE 75; RESP 20; O2SAT 98
--- NOTE | 2021-06-28 21:21 | PC.NURSE ---
Assisted pt to take off tight long sleeve tshirt, pt reports limited help at home for dressing.
== END 2021-06-28 21:20 | disposition home or self-care (01) ==
PROVIDERS: Emergency Provider Emergency Medicine; PCP Nurse Practitioner
DX: S49.92XA Unspecified injury of left shoulder and upper arm, initial encounter (principal); S49.91XA Unspecified injury of right shoulder and upper arm, initial encounter; W01.0XXA Fall on same level from slipping, tripping and stumbling without subsequent striking against object, initial encounter; Y93.89 Activity, other specified; Y92.480 Sidewalk as the place of occurrence of the external cause; Y99.0 Civilian activity done for income or pay
CPT/HCPCS: 73030; 99283

== ENCOUNTER → 2021-07-15 13:28 | Outpatient (CLI) | payer OTHER, BC, SELFPAY ==
--- NOTE | 2021-07-15 13:30 | DI.MRI.S_ITS ---
PROCEDURE: MR SHOULDER LT WO CON INDICATIONS: Strain of muscle(s) and tendon(s) of the rotator cuff of lef TECHNIQUE: Noncontrast oblique coronal T2 fast spin echo with fat saturation, oblique sagittal T1 spin echo and T2 fast spin echo with fat saturation, axial T1 spin echo and T2 fast spin echo with fat saturation through the shoulder. COMPARISON: [facility], MR, MR SHOULDER RT WO CON, 07/15/2021, 13:35. FINDINGS: Image quality: Excellent. Rotator cuff: There is full-thickness tearing of the mid and posterior supraspinatus as well as the mid/anterior infraspinatus tendons at the humeral insertion sites, which has progressed. There is associated supraspinatus and infraspinatus atrophy. There are intact fibers of the anterior supraspinatus which demonstrate moderate grade partial thickness tearing. There is moderate to high-grade articular surface and intrasubstance tearing of the mid infraspinatus tendon at the humeral insertion site extending to the musculotendinous junction. Subscapularis tendon demonstrates high-grade articular surface tearing of its superior, mid, and inferior aspects, extending the musculotendinous junction. Teres minor is intact. Bones and bursae: No bone marrow contusions or fractures. Moderate acromioclavicular joint degeneration. The acromion demonstrates conventional anatomy, without an os acromiale. No pathologic subacromial-subdeltoid or subcoracoid bursal fluid is present. Capsule and soft tissues: Labrum demonstrates diffuse degenerative tearing. Moderate glenohumeral joint effusion is present. The long head of the biceps tendon demonstrates normal location and partial-thickness tearing. The rotator interval appears normal, without fibrosis. The coracohumeral ligament is normal in thickness. IMPRESSION: 1. Progressive, full-thickness tearing of the supraspinatus and infraspinatus tendons with associated atrophy as described above. 2. Progressive tearing of the subscapularis tendon. 3. Acromioclavicular joint osteoarthritis. 4. Degenerative glenoid labral tearing. 5. Glenohumeral joint effusion. 6. Partial thickness biceps tendon tear. Dictated by: Didi Henry M.D. on 07/15/2021 at 14:15 Approved by: Didi Henry M.D. on 07/15/2021 at 16:49
--- NOTE | 2021-07-15 13:30 | DI.MRI.S_ITS ---
PROCEDURE: MR SHOULDER RT WO CON INDICATIONS: Strain of muscle(s) and tendon(s) of the rotator cuff of rig TECHNIQUE: Noncontrast oblique coronal T2 fast spin echo with fat saturation, oblique sagittal T1 spin echo and T2 fast spin echo with fat saturation, axial T1 spin echo and T2 fast spin echo with fat saturation through the shoulder. COMPARISON: Merged With [facility], MR, MR SHOULDER LT WO CON, 05/26/2018, 19:22. FINDINGS: Image quality: Excellent. Rotator cuff: Tendinosis and moderate grade articular and bursal surface partial thickness tear involving distal supraspinatus at its insertion on the humeral head is seen extending to musculotendinous junction. Focal full-thickness perforation involving most anterior fibers of distal supraspinatus at its insertion on the humeral head is noted with up to 4 mm medial retraction of torn tendon fibers. Distal infraspinatus tendinosis is seen. Distal subscapularis tendinosis and low-grade intrasubstance partial-thickness tear is noted. Sagittal images demonstrate mild supraspinatus muscle atrophy. Bones and bursae: Mild edema is seen involving greater tuberosity of humeral head near distal supraspinatus insertion without discrete fracture line. No other area of abnormal marrow signal.. Moderate acromioclavicular joint osteoarthritic changes are seen with downward osteophyte formation depressing on musculotendinous junction of supraspinatus. Mild glenohumeral joint osteoarthritic changes also noted. There is moderate amount of joint effusion and subacromial subdeltoid bursal fluid. No gross intra-articular loose bodies. Capsule and soft tissues: Labrum is grossly intact. The glenohumeral ligaments are grossly intact. The long head of the biceps tendinosis and low-grade intrasubstance partial-thickness tear is noted at the level of greater tuberosity. The rotator interval appears normal, without fibrosis. The coracohumeral ligament is normal in thickness. IMPRESSION: 1. Tendinosis and low to moderate grade articular and bursal surface partial thickness tear involving distal supraspinatus extending to musculotendinous junction with focal full-thickness perforation involving most anterior fibers of distal supraspinatus at its insertion on the humeral head and up to 4 mm medial retraction of torn tendon fibers. Mild supraspinatus muscle atrophy. 2. Distal infraspinatus and subscapularis tendinosis. Low-grade intrasubstance partial-thickness tear is also noted involving distal subscapularis. 3. Moderate acromioclavicular joint and mild glenohumeral joint osteoarthritis. Moderate amount of joint effusion and subacromial subdeltoid bursal fluid. 4. No gross focal labral tear. 5. Tendinosis and low-grade intrasubstance partial-thickness tear involving proximal intra-articular portion of long head of biceps. Dictated by: Murray Lo M.D. on 07/15/2021 at 14:48 Approved by: Murray Lo M.D. on 07/15/2021 at 14:57
== END ==
PROVIDERS: PCP Nurse Practitioner; Referring Provider Orthopaedic Surgery Foot and Ankle Surgery; Visit Provider Orthopaedic Surgery Foot and Ankle Surgery
DX: S46.011A Strain of muscle(s) and tendon(s) of the rotator cuff of right shoulder, initial encounter (principal); S46.012A Strain of muscle(s) and tendon(s) of the rotator cuff of left shoulder, initial encounter; S43.492A Other sprain of left shoulder joint, initial encounter; S46.112A Strain of muscle, fascia and tendon of long head of biceps, left arm, initial encounter; S46.111A Strain of muscle, fascia and tendon of long head of biceps, right arm, initial encounter; M19.012 Primary osteoarthritis, left shoulder; M19.011 Primary osteoarthritis, right shoulder; X58.XXXA Exposure to other specified factors, initial encounter
CPT/HCPCS: 73221

== ENCOUNTER → 2021-08-12 10:11 | Outpatient (CLI) | payer BC, SELFPAY ==
[2021-08-12 12:38] LABS: Add Manual Diff / Slide Review NO; Basophils Absolute Auto 100 /uL (0-100); Basophils Percent Auto 2.6 % (0-2); Eosinophils Absolute Auto 100 /uL (0-450); Eosinophils Percent Auto 1.7 % (2-4); Hematocrit 39.5 % (36-46); Hemoglobin 13.3 g/dL (12.0-16.0); Lymphocytes Absolute Auto 1400 /uL (1100-4500); Mean Corpuscular HGB Conc 33.7 % (30-36); Mean Corpuscular Hemoglobin 28.6 PG (26-34); Monocytes Absolute Auto 200 /uL (0-900); Monocytes Percent Auto 5.9 % (3-14); Neutrophils Absolute Auto 2400 /uL (1500-7000); Neutrophils Percent Auto 56.8 % (50-75); Platelet Count 239 X10^3/uL (150-400); Red Blood Cell Count 4.64 X10^6/uL (4.0-5.2); Red Cell Distribution Width 13.9 % (11.6-14.8); White Blood Cell Count 4.2 X10^3/uL (4.5-11.0)
[2021-08-12 13:13] LABS: Alanine Aminotransferase 17 IU/L (<35); Albumin 4.6 g/dL (3.5-5.0); Albumin Globulin Ratio 1.5 (1.0-2.8); Alkaline Phosphatase 60 U/L (38-126); Aspartate Aminotransferase 28 IU/L (14-36); Bilirubin Total 0.5 mg/dL (0.2-1.3); Blood Urea Nitrogen 17 mg/dL (7-17); Carbon Dioxide 33 mmol/L (22-32); Chloride 101 mmol/L (98-107); Cholesterol 270 mg/dL (140-199); Estimated Glomerular Filt Rate > 60.0 mL/min (>60); Globulin 3.1 g/dL (1.7-4.1); Glucose 95 mg/dL (70-100); HEMOLYSIS < 15 (0-50); Potassium 4.5 mmol/L (3.4-5.1); Sodium 135 mmol/L (137-145); Total Protein 7.7 g/dL (6.3-8.2); Triglycerides 62 mg/dL (35-150)
[2021-08-12 13:24] LABS: HDL Cholesterol 165 mg/dL (40-60); LDL Cholesterol Calculated 93 mg/dL (<100)
[2021-08-12 13:44] LABS: Free T3, Triiodothyronine Free 4.08 pg/mL (2.77-5.27); Free T4, Direct Thyroxine 1.29 ng/dL (0.78-2.19)
[2021-08-12 13:57] LABS: Thyroid Stimulating Hormone 1.65 uIU/mL (0.47-4.68)
== END ==
PROVIDERS: PCP Nurse Practitioner; Referring Provider Nurse Practitioner; Visit Provider Nurse Practitioner
DX: Z00.00 Encounter for general adult medical examination without abnormal findings (principal)
CPT/HCPCS: 36415; 80053; 80061; 84439; 84443; 84481; 85025

== ENCOUNTER → 2021-08-18 14:19 | Outpatient (CLI) | payer BC, SELFPAY ==
[2021-08-19 08:13] LABS: Fecal Immunochemical Test Negative (Negative)
== END ==
PROVIDERS: PCP Nurse Practitioner; Referring Provider Nurse Practitioner; Visit Provider Nurse Practitioner
DX: Z00.00 Encounter for general adult medical examination without abnormal findings (principal); Z12.11 Encounter for screening for malignant neoplasm of colon
CPT/HCPCS: 82274

== ENCOUNTER → 2023-02-16 12:50 | Outpatient (CLI) | payer OTHER, SELFPAY ==
--- NOTE | 2023-02-16 | DI.RAD.S_ITS ---
PROCEDURE: FL SHOULDER INJECTION MR/CT LT INDICATIONS: ONGOING PAIN S/P L RCR, BICEPS TENDONITIS COMPARISON: None. TECHNIQUE: The indications, alternatives, benefits, risks, and complications of the procedure were explained to the patient. Written informed consent was obtained and placed in the chart. The shoulder was examined fluoroscopically and a site for needle placement chosen for entry into the glenohumeral joint from an anterior approach. The skin was prepped and draped in a sterile fashion, and 1% lidocaine infiltrated from skin down to joint capsule. A spinal needle was inserted into the glenohumeral joint, and a small amount of iodinated contrast media injected to confirm intra-articular placement of the needle tip. This was followed by approximately 12 mL dilute solution of a gadolinium containing MR contrast agent. The needle was removed and a dressing was applied. The patient was given postprocedural instructions and sent to the MR suite for MR imaging. FINDINGS: A single fluoroscopic spot image demonstrates intra-articular location of injected iodinated contrast. IMPRESSION: Successful fluoroscopically guided administration of dilute Gadolinium solution into the shoulder joint for MR arthrogram. Dictated by: Murray Lo M.D. on 02/16/2023 at 15:07 Approved by: Murray Lo M.D. on 02/16/2023 at 15:08
--- NOTE | 2023-02-16 | DI.MRI.S_ITS ---
PROCEDURE: MR SHOULDER LT W CON INDICATIONS: ONGOING PAIN S/P L RCR, BICEPS TENDONITIS TECHNIQUE: After the administration of 12 mL of dilute intra-articular Gadolinium contrast, oblique coronal T1 and T2 spin echo with fat saturation, oblique sagittal T1 spin echo with and without fat saturation, oblique sagittal T2 fast spin echo with fat saturation, axial T1 spin echo with fat saturation through the shoulder. COMPARISON: None. FINDINGS: Image quality: Excellent. Rotator cuff: There is prior rotator cuff tendon repair with postsurgical changes. Moderate to high-grade articular surface partial-thickness tear involving distal supraspinatus at its insertion on the humeral head is noted extending to musculotendinous junction. Focal area of full-thickness perforation at its insertion on the humeral head cannot be excluded. Low to moderate grade articular surface partial-thickness tear involving distal infraspinatus at its insertion on the humeral head extending to musculotendinous junction. Distal subscapularis tendinosis is seen. Moderate supraspinatus muscle atrophy is seen on sagittal images. Bones and bursae: Likely postsurgical widening of acromioclavicular joint is seen. Postsurgical changes also seen in superior and lateral humeral head. No acute fracture or dislocation. No gross marrow edema. Capsule and soft tissues: The labrum and glenohumeral ligaments appear intact. The long head of the biceps tendon appears attenuated with intrasubstance T2 hyperintense signal within bicipital groove. The rotator interval appears normal, without fibrosis. The coracohumeral ligament is of normal thickness. No intra-articular bodies. IMPRESSION: 1. Prior rotator cuff tendon repair with postsurgical changes. Expected postsurgical widening of acromioclavicular joint. No fracture or dislocation. No gross intra-articular loose bodies. 2. Moderate to high-grade articular surface partial-thickness tear involving distal supraspinatus at its insertion on the humeral head extending to musculotendinous junction with suggestion of focal areas of full thickness perforation at its insertion on the humeral head. Low to moderate grade articular surface partial-thickness tear involving distal infraspinatus extending to musculotendinous junction. Distal subscapularis tendinosis. Moderate supraspinatus muscle atrophy. 3. No definite focal labral tear. 4. Low to moderate grade intrasubstance partial-thickness tear involving proximal intra-articular portion of long head of biceps. Dictated by: Murray Lo M.D. on 02/16/2023 at 14:24 Approved by: Murray Lo M.D. on 02/16/2023 at 14:29
[2023-02-17] MEDS: LIDOCAINE 1% MDV 30 ML INJ (07:25)
== END ==
PROVIDERS: PCP Nurse Practitioner; Referring Provider Orthopaedic Surgery Sports Medicine; Visit Provider Orthopaedic Surgery Sports Medicine
DX: M75.112 Incomplete rotator cuff tear or rupture of left shoulder, not specified as traumatic (principal); S46.112A Strain of muscle, fascia and tendon of long head of biceps, left arm, initial encounter; M25.512 Pain in left shoulder; M67.912 Unspecified disorder of synovium and tendon, left shoulder
CPT/HCPCS: 23350; 73222; A9270